=== PATIENT | male | born 1940 | race Caucasian/White ===

== ENCOUNTER 2022-03-08 20:18 | Inpatient (IN) | payer OTHER, MEDICAID ==
[~2022-03-08] VITALS: Ht 167.6 cm; Wt 78.0 kg
[2022-03-08] MEDS ORDERED: SODIUM CHLORIDE 0.9% 1,000 ML IV ONE ×2 (20:45→21:00)
[2022-03-08 22:28] LABS: BASOPHILS % 0.3 % (0.0-2.0); EOSINOPHILS % 1.3 % (0.0-5.0); HEMATOCRIT. 27.1 % (42.0-52.0); HEMOGLOBIN. 8.8 g/dL (14.0-18.0); LYMPHOCYTES % 21.2 % (20.0-50.0); MEAN CORPUSCULAR HEMOGLOBIN 31.1 pg (28.0-32.0); MEAN CORPUSCULAR VOLUME 95.9 fL (80.0-94.0); MEAN PLATELET VOLUME 10.5 fl (7.4-10.4); NEUTROPHILS % 65.2 % (40.0-76.0); PLATELET 112 x1000/uL (130-400); RED BLOOD CELL COUNT 2.83 mill/uL (4.7-6.1); RED CELL DISTRIBUTION WIDTH 13.8 % (11.6-14.6)
[2022-03-08 23:19] LABS: CHLORIDE 103 mEq/L (98-107)
[2022-03-08] MEDS ORDERED: NOREPINEPHRINE 8 MG in DEXT 5% WATER 242 ML IV SCH (23:30)
[2022-03-08] MEDS ORDERED: NOREPINEPHRINE 8MG/250ML PMX 250 ML IV PRN (23:49)
[2022-03-09] VITALS (50 sets, daily range): BP systolic 86–149; BP diastolic 44–105
[2022-03-09] MEDS ORDERED: CALCIUM GLUCONATE 100MG/ML 10ML VIAL IV NR
[2022-03-09] MEDS ORDERED: POTASSIUM CHLORIDE 20MEQ TABLET SR PO NR
[2022-03-09] MEDS ORDERED: FAMOTIDINE 20MG/2ML VIAL IV ONE (01:00)
[2022-03-09] MEDS ORDERED: ONDANSETRON HCL 4MG/2ML INJ IV PRN (01:15)
[2022-03-09] MEDS ORDERED: DEXTROSE 50% WATER 50ML SYRINGE IV PRN (01:15)
[2022-03-09] MEDS ORDERED: ACETAMINOPHEN 325MG TABLET PO PRN ×2 (01:15)
[2022-03-09] MEDS ORDERED: DIPHENHYDRAMINE 50MG/ML VIAL IV PRN (01:15)
[2022-03-09] MEDS: DEXT 5%/0.45% NACL 1000ML 1,000 ML IV SCH ×3 (02:19→17:07)
[2022-03-09] MEDS ORDERED: LEVOFLOXACIN 500MG PREMIX 100 ML IV NR (03:00)
[2022-03-09 06:03] LABS: BASOPHILS % 0.3 % (0.0-2.0); EOSINOPHILS % 0.9 % (0.0-5.0); HEMATOCRIT. 36.1 % (42.0-52.0); LYMPHOCYTES % 15.5 % (20.0-50.0); MEAN CORPUSCULAR HEMOGLOBIN 31.4 pg (28.0-32.0); MEAN CORPUSCULAR VOLUME 94.2 fL (80.0-94.0); MEAN PLATELET VOLUME 10.8 fl (7.4-10.4); MONOCYTES % 9.6 % (2.0-8.0); NEUTROPHILS % 73.7 % (40.0-76.0); PLATELET 163 x1000/uL (130-400); RED BLOOD CELL COUNT 3.83 mill/uL (4.7-6.1); RED CELL DISTRIBUTION WIDTH 13.4 % (11.6-14.6)
[2022-03-09 06:23] LABS: CHLORIDE 102 mEq/L (98-107)
[2022-03-09 06:38] LABS: PHOSPHORUS 1.7 mg/dL (2.5-4.9)
[2022-03-09 06:40] LABS: CLARITY URINE TURBID (CLEAR); COLOR URINE DARK YELLOW (YELLOW); KETONES URINE TRACE (NEGATIVE); LEUKOCYTE ESTERASE URINE 3+ (NEGATIVE); NITRITE URINE POSITIVE (NEGATIVE); OCCULT BLOOD URINE TRACE (NEGATIVE); PROTEIN URINE 1+ (NEGATIVE); SPECIFIC GRAVITY URINE 1.022 (1.005-1.030)
[2022-03-09 07:39] LABS: *AMPHETAMINES SCREEN URINE NEGATIVE (NEGATIVE); *BARBITURATES SCREEN URINE NEGATIVE (NEGATIVE); *BENZODIAZEPINES SCREEN URINE NEGATIVE (NEGATIVE); *COCAINE SCREEN URINE NEGATIVE (NEGATIVE); CANNABINOID URINE SCREEN NEGATIVE (NEGATIVE); METHADONE URINE SCREEN NEGATIVE (NEGATIVE); OPIATES URINE SCREEN NEGATIVE (NEGATIVE); PHENCYCLIDINE URINE SCREEN NEGATIVE (NEGATIVE)
[2022-03-09] MEDS: BLOOD SUGAR DIAGNOSTIC STRIP TEST SCH ×4 (08:35→20:34)
[2022-03-09] MEDS: PANTOPRAZOLE SODIUM 40 MG/VIAL IV SCH (08:49)
[2022-03-09] MEDS: INSULIN LISPRO 100 UNITS/ML SUBCUT SCH ×4 (08:51→20:34)
[2022-03-09] MEDS ORDERED: ENOXAPARIN 40MG/0.4ML SYR SUBCUT SCH (09:00)
[2022-03-09] MEDS ORDERED: POTASSIUM PHOS,M-BASIC-D-BASIC 30 MMOL in DEXT 5% WATER 500 ML IV NR (12:30)
[2022-03-09] MEDS ORDERED: INFLUENZA VACCINE 05/PF 0.5 ML SYRINGE IM ONE (15:00)
[2022-03-09] MEDS ORDERED: PNEUMOCOCCAL 23-VAL P-SAC VAC 0.5 ML IM ONE (15:00)
[2022-03-09 17:46] LABS: INR 1.3
[2022-03-09] MEDS ORDERED: IPRATROPIUM/ALBUTEROL 0.5-3(2.5)MG/3ML NEB HHN PRN (19:30)
[2022-03-09] MEDS ORDERED: CEFTRIAXONE 1 G PREMIX 50 ML IV SCH (19:30)
[2022-03-09] MEDS: CEFTRIAXONE 1,000 MG in DEXTROSE 5% WATER 50 ML IV SCH (20:33)
[2022-03-09] MEDS: ENOXAPARIN 80MG/0.8ML SYR SUBCUT SCH (20:34)
[2022-03-09] MEDS ORDERED: BUDESONIDE 0.5MG/2ML NEB HHN SCH (21:00)
[2022-03-09] MEDS: GUAIFENESIN 200MG/10ML SUGAR FREE UDC PO PRN (21:40)
[2022-03-10] VITALS (20 sets, daily range): BP systolic 85–150; BP diastolic 35–97
[2022-03-10] MEDS ORDERED: LEVOFLOXACIN 250MG PREMIX 50 ML IV SCH ×2 (02:00)
[2022-03-10] MEDS: DEXT 5%/0.45% NACL 1000ML 1,000 ML IV SCH ×2 (02:40→11:30)
[2022-03-10] MEDS: GUAIFENESIN 200MG/10ML SUGAR FREE UDC PO PRN (04:00)
[2022-03-10 05:52] LABS: BASOPHILS % 0.4 % (0.0-2.0); EOSINOPHILS % 4.6 % (0.0-5.0); HEMATOCRIT. 34.3 % (42.0-52.0); HEMOGLOBIN. 11.5 g/dL (14.0-18.0); LYMPHOCYTES % 25.4 % (20.0-50.0); MEAN CORPUSCULAR HEMOGLOBIN 31.6 pg (28.0-32.0); MEAN CORPUSCULAR VOLUME 94.4 fL (80.0-94.0); MEAN PLATELET VOLUME 10.7 fl (7.4-10.4); MONOCYTES % 11.6 % (2.0-8.0); PLATELET 143 x1000/uL (130-400); RED BLOOD CELL COUNT 3.64 mill/uL (4.7-6.1); RED CELL DISTRIBUTION WIDTH 13.6 % (11.6-14.6)
[2022-03-10 05:54] LABS: CHLORIDE 104 mEq/L (98-107)
[2022-03-10 06:06] LABS: PHOSPHORUS 2.4 mg/dL (2.5-4.9)
[2022-03-10] MEDS: BLOOD SUGAR DIAGNOSTIC STRIP TEST SCH ×4 (07:22→21:28)
[2022-03-10] MEDS: INSULIN LISPRO 100 UNITS/ML SUBCUT SCH ×4 (08:20→21:00)
[2022-03-10] MEDS: MIDODRINE HCL 5MG TABLET PO SCH ×3 (09:00→17:51)
[2022-03-10] MEDS: PANTOPRAZOLE SODIUM 40 MG/VIAL IV SCH (09:18)
[2022-03-10] MEDS: ENOXAPARIN 80MG/0.8ML SYR SUBCUT SCH ×2 (09:18→21:25)
[2022-03-10] MEDS ORDERED: IOHEXOL-350 100 ML BOTTLE ONE (09:37)
[2022-03-10] MEDS ORDERED: MAGNESIUM 4 G PREMIX 100 ML IV NR (17:00)
[2022-03-10] MEDS ORDERED: POTASSIUM PHOS,M-BASIC-D-BASIC 20 MMOL in DEXT 5% WATER 243.3333 ML IV NR (17:00)
[2022-03-10] MEDS: CEFTRIAXONE 1,000 MG in DEXTROSE 5% WATER 50 ML IV SCH (21:58)
[2022-03-11] VITALS (7 sets, daily range): BP systolic 106–136; BP diastolic 50–74
[2022-03-11] MEDS: DEXT 5%/0.45% NACL 1000ML 1,000 ML IV SCH (05:58)
[2022-03-11] MEDS: BLOOD SUGAR DIAGNOSTIC STRIP TEST SCH ×4 (07:40→20:54)
[2022-03-11] MEDS: INSULIN LISPRO 100 UNITS/ML SUBCUT SCH ×4 (08:10→20:54)
[2022-03-11] MEDS: MIDODRINE HCL 5MG TABLET PO SCH ×3 (08:32→18:11)
[2022-03-11] MEDS: PANTOPRAZOLE SODIUM 40 MG/VIAL IV SCH (08:32)
[2022-03-11] MEDS: ENOXAPARIN 80MG/0.8ML SYR SUBCUT SCH ×2 (08:34→21:07)
[2022-03-11 10:52] LABS: BASOPHILS % 0.6 % (0.0-2.0); EOSINOPHILS % 4.8 % (0.0-5.0); HEMATOCRIT. 35.1 % (42.0-52.0); HEMOGLOBIN. 11.4 g/dL (14.0-18.0); LYMPHOCYTES % 22.1 % (20.0-50.0); MEAN CORPUSCULAR HEMOGLOBIN 30.8 pg (28.0-32.0); MEAN PLATELET VOLUME 10.6 fl (7.4-10.4); MONOCYTES % 11.8 % (2.0-8.0); NEUTROPHILS % 60.7 % (40.0-76.0); PLATELET 161 x1000/uL (130-400); RED BLOOD CELL COUNT 3.69 mill/uL (4.7-6.1); RED CELL DISTRIBUTION WIDTH 14.4 % (11.6-14.6)
[2022-03-11 11:29] LABS: CHLORIDE 108 mEq/L (98-107)
[2022-03-11 11:39] LABS: PHOSPHORUS 2.1 mg/dL (2.5-4.9)
[2022-03-11] MEDS: CEFTRIAXONE 1,000 MG in DEXTROSE 5% WATER 50 ML IV SCH (21:07)
[2022-03-11] MEDS ORDERED: LACTULOSE 20G/30ML UDC PO SCH (22:00)
[2022-03-12] VITALS: BP 118/65
[2022-03-12] MEDS: DEXT 5%/0.45% NACL 1000ML 1,000 ML IV SCH (02:00)
[2022-03-12] MEDS ORDERED: FAMOTIDINE 20MG TABLET PO SCH (09:00)
== END 2022-03-12 03:31 | disposition short-term general hospital (02) | DRG 853 ==
LOC: ER 20:18 → ENRESERV 03-09 06:23 → CVICU 03-09 07:39 → 7WST 03-10 11:25
PROVIDERS: ADMIT Internal Medicine; ATTEND Internal Medicine
PROC: 06HY33Z Insertion of Infusion Device into Lower Vein, Percutaneous Approach (ICD-10-PCS; 2022-03-09)
PROC: B54BZZA Ultrasonography of Right Lower Extremity Veins, Guidance (ICD-10-PCS; 2022-03-09)
PROC: 0LBV0ZZ Excision of Right Foot Tendon, Open Approach (ICD-10-PCS; principal; 2022-03-10)
DX: A41.9 Sepsis, unspecified organism (principal); I26.99 Other pulmonary embolism without acute cor pulmonale; D68.59 Other primary thrombophilia; E44.0 Moderate protein-calorie malnutrition; N17.9 Acute kidney failure, unspecified; I82.431 Acute embolism and thrombosis of right popliteal vein; I82.411 Acute embolism and thrombosis of right femoral vein; N39.0 Urinary tract infection, site not specified; J44.9 Chronic obstructive pulmonary disease, unspecified; E11.621 Type 2 diabetes mellitus with foot ulcer; L97.519 Non-pressure chronic ulcer of other part of right foot with unspecified severity; E83.42 Hypomagnesemia; E83.39 Other disorders of phosphorus metabolism; K59.00 Constipation, unspecified; I48.0 Paroxysmal atrial fibrillation; M19.90 Unspecified osteoarthritis, unspecified site; G89.29 Other chronic pain; D69.6 Thrombocytopenia, unspecified; I95.9 Hypotension, unspecified; I25.10 Atherosclerotic heart disease of native coronary artery without angina pectoris; E87.6 Hypokalemia; D64.9 Anemia, unspecified; E11.65 Type 2 diabetes mellitus with hyperglycemia; S91.311A Laceration without foreign body, right foot, initial encounter; L97.529 Non-pressure chronic ulcer of other part of left foot with unspecified severity; Z20.822 Contact with and (suspected) exposure to COVID-19; Z79.899 Other long term (current) drug therapy; I25.2 Old myocardial infarction; Z99.3 Dependence on wheelchair; Z87.891 Personal history of nicotine dependence; Z68.27 Body mass index [BMI] 27.0-27.9, adult; X58.XXXA Exposure to other specified factors, initial encounter; Y93.89 Activity, other specified; Y92.89 Other specified places as the place of occurrence of the external cause; Y99.8 Other external cause status
CPT/HCPCS: 36415; 71045; 71275; 73630; 80048; 80053; 80061; 80305; 81003; 82962; 83036; 83735; 83880; 84100; 84145; 84443; 84484; 85025; 87077; 87186; 87426; 93005; 93306; 93970; 99291; C9113; J0610; J0696; J1200; J1650; J1815; J1956; J3475; J3490; J7030; J7060; Q9967